=== PATIENT | female | born 1950 | race Caucasian/White ===

== ENCOUNTER → 2017-02-16 | Outpatient (CLI) | payer BC ==
[~2017-02-16] MED LIST: BACTRIM DS 8001 TAB PO; CEPHALEXIN500 M1 PO; NO HOME MEDICATIONS; NORCO 325 MG-7.1 TAB; NORCO 325 MG-7.1 TAB PO; no home medications
== END ==
LOC: COL.VAS 10:48
DX: I51.7 Cardiomegaly (principal); R00.2 Palpitations

== ENCOUNTER → 2017-03-27 | Outpatient (CLI) | payer BC ==
[2017-03-27] VITALS (12 sets, daily range): BP systolic 133–177; BP diastolic 80–109; PULSE 56–84
[~2017-03-27] VITALS: Ht 170.2 cm; Wt 60.0 kg
== END ==
LOC: COL.RAD 06:09
DX: B18.2 Chronic viral hepatitis C (principal)

== ENCOUNTER → 2017-04-24 | Outpatient (CLI) | payer BC | LOC: MC.RAD 11:33 | DX: Z12.31 Encounter for screening mammogram for malignant neoplasm of breast (principal); Z98.82 Breast implant status ==

== ENCOUNTER → 2017-05-02 | Outpatient (CLI) | payer BC | LOC: MC.RAD 13:36 | DX: R92.8 Other abnormal and inconclusive findings on diagnostic imaging of breast (principal); Z97.8 Presence of other specified devices ==

== ENCOUNTER → 2017-12-06 | Outpatient (CLI) | payer BC ==
[2017-12-06 15:22] LABS: BASO % 0.3 % (0.0-2.0); EOS # 0.1 (0.0-0.7); EOS % 1.7 % (0-4.0); GRAN # 3.6 (1.4-6.5); GRAN % 47.8 % (42.2-75.2); HEMATOCRIT 40.6 % (37.0-47.0); LYMPH # 3.3 (1.2-3.4); LYMPH % 43.8 % (20.0-51.0); MEAN CELL VOLUME 89 fl (80.0-100.0); MEAN CORPUSCULAR HEMOGLOBIN 31 pg (27.0-31.0); MEAN CORPUSCULAR HGB CONC 35 g/dl (33.0-37.0); MEAN PLATELET VOLUME 9.4 fl (7.4-10.4); MONO # 0.5 (0.1-0.6); MONO % 6.3 % (1.7-9.3); PLATELET COUNT 278 K/mm3 (130-400); RED BLOOD COUNT 4.54 M/mm3 (4.10-5.30); REDCELL DISTRIBUTION WIDTH-CV 11.9 % (11.5-14.5)
[2017-12-06 15:37] LABS: ALANINE AMINOTRANSFERASE 42 U/L (9-52); ALBUMIN 4.4 gm/dL (3.5-5.0); ALKALINE PHOSPHATASE 61 U/L (50-136); ANION GAP 7 mmol/L (7-16); AST,SGOT 40 U/L (15-37); BILIRUBIN,TOTAL 1.3 mg/dL (0.0-1.0); BLOOD UREA NITROGEN 16 mg/dL (7-17); CALCIUM 10.2 mg/dL (8.4-10.2); CARBON DIOXIDE 30 mmol/L (22-30); CHLORIDE 99 mmol/L (98-107); CREATININE, serum 0.83 mg/dL (0.52-1.25); GLUCOSE 83 mg/dL (74-106); POTASSIUM 3.4 mmol/L (3.4-5.0); SODIUM 136 mmol/L (137-145); TOTAL PROTEIN 8.4 gm/dL (6.4-8.2)
[2017-12-06 15:52] LABS: TROPONIN-I < 0.012 ng/mL (0.000-0.034)
== END ==
LOC: COL.LAB 14:54
PROVIDERS: Nurse Practitioner Primary Care
DX: R07.89 Other chest pain (principal)

== ENCOUNTER → 2018-01-08 | Outpatient (CLI) | payer BC | LOC: COL.RAD 11:52 | DX: M25.511 Pain in right shoulder (principal) | CPT/HCPCS: J3301; Q9967 ==

== ENCOUNTER → 2018-06-20 | Outpatient (CLI) | payer BC | LOC: MC.RAD 11:00 | DX: Z12.31 Encounter for screening mammogram for malignant neoplasm of breast (principal); Z98.82 Breast implant status ==

== ENCOUNTER → 2018-12-24 | Outpatient (CLI) | payer BC | LOC: COL.RAD 08:45 | DX: M25.511 Pain in right shoulder (principal) | CPT/HCPCS: J3301; Q9967 ==

== ENCOUNTER → 2020-08-31 | Outpatient (CLI) | payer BC, OTHER ==
[~2020-08-31] MED LIST changes: +D3-5050000 IU PO; +ZOCOR 40MG40 MG PO
== END ==
LOC: MC.RAD 08-07 09:00
DX: Z12.31 Encounter for screening mammogram for malignant neoplasm of breast (principal); Z98.82 Breast implant status

== ENCOUNTER → 2020-12-24 | Outpatient (CLI) | payer BC, OTHER ==
[2020-12-24 14:13] VITALS: BP 130/78; PULSE 80; TEMP 97.9
== END ==
LOC: EUO 13:27
DX: M81.0 Age-related osteoporosis without current pathological fracture (principal)
CPT/HCPCS: J0897

== ENCOUNTER 2021-07-13 16:05 | Outpatient (CLI) | payer OTHER ==
[~2021-07-13] VITALS: Ht 170.2 cm; Wt 62.1 kg
[2021-07-13] MEDS ORDERED: ZOCOR 10MG10 MG PO (16:21)
[2021-07-13] MEDS ORDERED: VITAMIN D 50,1.25 MG PO (16:22)
[2021-07-13] MEDS ORDERED: NORVASC 5MG5 MG/TAB PO (16:22)
[2021-07-13 16:37] VITALS: BP 150/89; PULSE 67; TEMP 98.4
== END 2021-07-13 16:58 | disposition home or self-care (01) ==
LOC: EUO 16:05
DX: M81.0 Age-related osteoporosis without current pathological fracture (principal)
CPT/HCPCS: J0897

== ENCOUNTER 2021-08-26 07:27 | Day surgery (SDC) | payer OTHER ==
[2021-07-13 16:27] VITALS: BP 150/89; PULSE 67; TEMP 98.4
[~2021-08-26] VITALS: Ht 170.2 cm; Wt 61.9 kg
[~2021-08-26 07:27] MED LIST changes: +NORVASC 5MG5 MG/TAB PO; +VITAMIN D 50,1.25 MG PO; +ZOCOR 10MG10 MG PO
[2021-08-26] MEDS ORDERED: NORVASC 5MG5 MG/TAB PO (07:55)
[2021-08-26] MEDS ORDERED: ZOCOR 10MG10 MG PO (07:56)
[2021-08-26] MEDS ORDERED: VITAMIN D 50,1.25 MG PO (07:56)
[2021-08-26] MEDS ORDERED: PROLIA60 MG/ML SQ (07:58)
[2021-08-26 08:09] VITALS: BP 130/83; PULSE 76; TEMP 97.6
[2021-08-26 09:35] VITALS: BP 116/82; PULSE 74; TEMP 97.3
--- NOTE | 2021-08-26 09:35 | NUR ---
PATIENT ARRIVES TO ROOM 3 VIA CART. ASSIST TO CHAIR X 2. PATIENT IS VERY GROGGY AND DECLINES ANYTHING TO EAT/DRINK. VITAL SIGNS WNL. AT BEDSIDE. DOCTOR IN TO SPEAK WITH . WILL CONTINUE TO MONITOR.
[2021-08-26 09:50] VITALS: BP 136/90; PULSE 78
--- NOTE | 2021-08-26 09:50 | NUR ---
PATIENT IS STILL VERY SLEEPY. VITAL SIGNS WNL. SHE DECLINES ANYTHING TO EAT OR DRINK. WANTS TO REST A BIT LONGER. WAITING FOR DOCTOR TO SPEAK WITH PATIENT. WILL CONTINUE TO MONITOR.
[2021-08-26 10:05] VITALS: BP 151/87; PULSE 60
--- NOTE | 2021-08-26 10:05 | NUR ---
PATIENT IS STILL GROGGY BUT IS ABLE TO AMBULATE TO THE BATHROOM. DOCTOR AT BEDSIDE. VITAL SIGNS WNL. DISCHARGE INSTRUCTIONS REVIEWED. IV REMOVED. WILL DISCHARGE ONCE PATIENT IS DRESSED.
== END 2021-08-26 10:23 | disposition home or self-care (01) ==
LOC: SDCO 07:27
DX: Z12.11 Encounter for screening for malignant neoplasm of colon (principal); K57.30 Diverticulosis of large intestine without perforation or abscess without bleeding; K63.5 Polyp of colon; D37.5 Neoplasm of uncertain behavior of rectum; K64.8 Other hemorrhoids; D17.5 Benign lipomatous neoplasm of intra-abdominal organs
CPT/HCPCS: J2704; J7120

== ENCOUNTER 2023-10-18 13:46 | Outpatient (CLI) | payer MEDICARE, OTHER ==
[~2023-10-18] VITALS: Ht 170.2 cm; Wt 62.1 kg
[~2023-10-18 13:46] MED LIST changes: +LASIX 20MG TABL20 MG PO; +PROLIA60 MG/ML SQ
[2023-10-18] MEDS ORDERED: Denosumab 60 MG/ML SYRINGE SQ ONE (14:15)
[2023-10-18 14:23] VITALS: BP 139/86; PULSE 83; TEMP 98.3
== END 2023-10-18 14:54 ==
LOC: EUO 13:46
DX: M81.0 Age-related osteoporosis without current pathological fracture (principal)
CPT/HCPCS: J0897

== ENCOUNTER → 2023-11-09 | Outpatient (CLI) | payer MEDICARE, OTHER | LOC: COL.VAS 11:28 | DX: J90 Pleural effusion, not elsewhere classified (principal); Z83.49 Family history of other endocrine, nutritional and metabolic diseases ==